=== PATIENT | male | born 1995 | race Caucasian/White ===

== ENCOUNTER 2016-11-01 22:49 | Emergency (ER) | payer OTHER ==
[~2016-11-01] VITALS: Ht 167.6 cm; Wt 113.4 kg
[2016-11-01] MEDS ORDERED: IBUPROFEN 800 MG (MOTRIN) TAB PO STA (23:11)
[2016-11-01] MEDS ORDERED: ACETAMINOPHEN 500 MG TAB (TYLENOL) PO STA (23:11)
--- NOTE | 2016-11-01 23:21 | ED Cough/URI ---
General Chief Complaint: Fever-Adult/Adol Stated Complaint: FLU SYMPTOMS Nursing Triage Note: c/o fever x 2 days with cough, headache, vision disturbances and balance issues Source: patient History of Present Illness Time seen by provider: 23:04 Initial Comments PT HAS HAD SUBJECTIVE FEVER SINCE YESTERDAY C/O NON-PRODUCTIVE COUGH AND CLEAR RHINORRHEA C/O SORE THROAT C/O HEADACHE C/O NAUSEA, NO VOMITING AND STATES HE HAS BEEN EATING AND DRINKING NORMALLY C/O BODY ACHES C/O GENERALIZED WEAKNESS AND FEELS LIKE HE IS GOING TO FALL OVER IF HE STANDS TOO LONG PT WORKED ALL DAY TODAY AND YESTERDAY STATES HE TOOK TYLENOL X 1 YESTERDAY AND ONE PILL TODAY AT NOON AND IT HELPED WITH ALL SYMPTOMS TRIED TAKING ONE AT 1800 AND ONLY HAD TEMPORARY IMPROVEMENT NO KNOWN SICK CONTACTS. PCP: [place] [facility] HE [place] MOVED FROM [place], [place] TO [place], [place] PLANS ON ESTABLISHING WITH DR. STEVENS IN [place] Allergies and Home Medications Allergies Coded Allergies: Penicillins (Verified Allergy, Unknown, 11/01/16) Home Medications No Active Prescriptions or Reported Meds Constitutional: see HPI, dizziness, fever, malaise, weakness EENTM: see HPI, blurred vision (AT TIMES), nose congestion, throat pain, No throat swelling Respiratory: see HPI, cough, No short of breath, No wheezing Cardiovascular: no symptoms reported Gastrointestinal: see HPI, No abdominal pain, No loss of appetite, nausea, No vomiting Genitourinary: no symptoms reported Musculoskeletal: see HPI (BODY ACHES) Skin: no symptoms reported, No rash Psychiatric/Neurological: See HPI, Headache, Denies Numbness, Denies Paresthesia, Denies Seizure, Denies Tingling, Denies Tremors, Denies Weakness Hematologic/Lymphatic: No Symptoms Reported Immunological/Allergic: no symptoms reported Past Jxfjktu-Gprurg-Loldzm Hx Patient Social History Alcohol Use: Occasionally Uses (DENIES RECENT USE--STATES HE HAS "BINGE" DRANK IN THE PAST) Recreational Drug Use: No Smoking Status: Current Someday Smoker (OCCASIONALLY SMOKES) Recent Foreign Travel: No Contact w/Someone Who Travel: No Recent Infectious Disease Expo: No Physical Abuse: No Sexual Abuse: No Surgeries History of Surgeries: No Respiratory History of Respiratory Disorde: No Cardiovascular History of Cardiac Disorders: No Neurological History of Neurological Disord: No Genitourinary History of Genitourinary Disor: No Gastrointestinal History of Gastrointestinal Di: No Musculoskeletal History of Musculoskeletal Dis: No Endocrine History of Endocrine Disorders: No HEENT History of HEENT Disorders: No Cancer History of Cancer: No Psychosocial History of Psychiatric Problem: No Suicide Risk Score: 0 Integumentary History of Skin or Integumenta: No Blood Transfusions History of Blood Disorders: No Physical Exam Vital Signs Vital Sign - Last 12Hours 11/01/16 23:00 Temp 101.6 Pulse 100 Resp 18 B/P (MAP) 138/86 Pulse Ox 97 Capillary Refill : Less Than 3 Seconds General Appearance: WD/WN, no apparent distress HEENT: PERRL/EOMI, other (RIGHT TM MILDLY INFLAMED; PHARYNX INFLAMED TONSILS +2 /4 IN SIZE WITH SMALL EXUDATE. ORAL MUCOSA MOIST. ) Neck: non-tender, full range of motion, supple, No lymphadenopathy (R), No lymphadenopathy (L) Respiratory: normal breath sounds, no respiratory distress, no accessory muscle use Cardiovascular: normal peripheral pulses, regular rate, rhythm, no murmur Gastrointestinal: normal bowel sounds, non tender, soft Extremities: normal inspection, normal capillary refill Neurologic/Psychiatric: [employer] II-XII nml as tested, no motor/sensory deficits, alert, normal mood/affect, oriented x 3 Skin: normal color, warm/dry (VERY WARM, FLUSHED. ), No rash Progress/Results/Core Measures Results/Orders Lab Results Laboratory Tests Test 11/01/16 23:25 11/01/16 23:49 Range/Units White Blood Count 10.3 4.3-11.0 10^3/uL Red Blood Count 4.96 4.35-5.85 10^6/uL Hemoglobin 14.6 13.3-17.7 G/DL Hematocrit 42 40-54 % Mean Corpuscular Volume 85 80-99 FL Mean Corpuscular Hemoglobin 29 25-34 PG Mean Corpuscular Hemoglobin Concent 35 32-36 G/DL Red Cell Distribution Width 12.7 10.0-14.5 % Platelet Count 320 130-400 10^3/uL Mean Platelet Volume 9.3 7.4-10.4 FL Neutrophils (%) (Auto) 69 42-75 % Lymphocytes (%) (Auto) 16 12-44 % Monocytes (%) (Auto) 14 H 0-12 % Eosinophils (%) (Auto) 0 0-10 % Basophils (%) (Auto) 0 0-10 % Neutrophils # (Auto) 7.2 1.8-7.8 X 10^3 Lymphocytes # (Auto) 1.7 1.0-4.0 X 10^3 Monocytes # (Auto) 1.5 H 0.0-1.0 X 10^3 Eosinophils # (Auto) 0.0 0.0-0.3 10^3/uL Basophils # (Auto) 0.0 0.0-0.1 10^3/uL Monoscreen NEGATIVE NEGATIVE Group A Streptococcus Screen NEGATIVE NEGATIVE My Orders Orders - MAHESH POND DO Cbc With Automated Diff (11/01/16 23:11) Monotest (11/01/16 23:11) Rapid Strep A Screen (11/01/16 23:11) Acetaminophen Tablet (Tylenol Tablet) (11/01/16 23:11) Ibuprofen Tablet (Motrin Tablet) (11/01/16 23:11) Vital Signs/I&O Vital Sign - Last 12Hours 11/01/16 23:00 Temp 101.6 Pulse 100 Resp 18 B/P (MAP) 138/86 Pulse Ox 97 Blood Pressure Mean: 103 Departure Impression Impression: Primary Impression: Pharyngitis Disposition: 01 HOME, SELF-CARE Condition: Improved Departure-Patient Inst. Referrals: NO,LOCAL PHYSICIAN (PCP) Primary Care Physician Patient Instructions: Sore Throat, Adult (DC) Add. Discharge Instructions: LOTS OF CLEAR LIQUIDS--WATER, BROTH, JELLO, GATORADE TYLENOL 1 GRAM / MOTRIN 800 MG 4 TIMES A DAY FOR PAIN OR FEVER FOLLOW UP WITH OF [facility] IN 3-4 DAYS IF NO BETTER RETURN TO ER IF WORSE All discharge instructions reviewed with patient and/or family. Voiced understanding. Scripts Azithromycin (Zithromax) 500 Mg Tablet 500 MG PO DAILY, #5 TAB FOR INFECTION Prov: MAHESH POND DO 11/02/16 MAHESH POND DO Nov 01, 2016 23:21
[2016-11-01 23:34] LABS: BASOPHILS % (AUTO) 0 % (0-10); EOSINOPHILS % (AUTO) 0 % (0-10); LYMPHOCYTES # (AUTO) 1.7 X 10^3 (1.0-4.0); LYMPHOCYTES % (AUTO) 16 % (12-44); MEAN CORPUSCULAR HEMOGLOBIN 29 PG (25-34); MEAN CORPUSCULAR HGB CONC 35 G/DL (32-36); MEAN CORPUSCULAR VOLUME 85 FL (80-99); MEAN PLATELET VOLUME 9.3 FL (7.4-10.4); MONOCYTES # (AUTO) 1.5 X 10^3 (0.0-1.0); MONOCYTES % (AUTO) 14 % (0-12); NEUTROPHILS # (AUTO) 7.2 X 10^3 (1.8-7.8); NEUTROPHILS % (AUTO) 69 % (42-75); PLATELET COUNT 320 10^3/uL (130-400); RED BLOOD COUNT 4.96 10^6/uL (4.35-5.85); RED CELL DISTRIBUTION WIDTH 12.7 % (10.0-14.5); WHITE BLOOD COUNT 10.3 10^3/uL (4.3-11.0)
[2016-11-02] MEDS ORDERED: AZIT500T PO (00:11)
[2016-11-02] MEDS ORDERED: AZITHROMYCIN 250 MG TAB (ZITHROMAX) PO ONE (00:15)
[2016-11-02 00:24] VITALS: BP 138/86
== END 2016-11-02 00:24 | disposition home or self-care (01) ==
LOC: ER 22:52
DX: J02.9 Acute pharyngitis, unspecified (principal); F17.210 Nicotine dependence, cigarettes, uncomplicated
CPT/HCPCS: 36415; 85025; 86308; 87430; 99283